=== PATIENT | male | born 1960 | race Caucasian/White ===

== ENCOUNTER 2018-01-27 14:32 | Emergency (ER) | payer OTHER ==
[~2018-01-27] VITALS: Ht 185.4 cm; Wt 95.2 kg
[~2018-01-27 14:32] MED LIST: MOBIC15 MG PO; OMEPRAZOLE40 M1 PO; PERCOCET 5/31 TABLET PO; PRINIVIL20 MG PO
[2018-01-27 15:24] LABS: HEMATOCRIT 42.5 % (38.0-50.0); HEMOGLOBIN 14.9 G/DL (12.5-16.6); MCH 28.4 PG (29.0-34.0); MCHC 35.1 G/DL (30.0-36.0); MCV 81.1 FL (86-99); PLATELET COUNT 176 K/uL (156-360); RBC DIS.WIDTH-CV 12.8 % (11.8-14.6); RBC DIS.WIDTH-SD 37.7 % (39-53); RED BLOOD COUNT 5.24 M/uL (4.00-5.50); WHITE BLOOD COUNT 6.5 K/uL (4.1-10.2)
[2018-01-27 15:35] LABS: ALBUMIN 4.4 g/dL (3.2-4.8); CHLORIDE 110 mEq/L (99-109); POTASSIUM 4.2 mEq/L (3.7-5.4); SODIUM 141 mEq/L (136-147)
[2018-01-27 15:38] LABS: GLUCOSE 94 mg/dL (70-99); TOTAL PROTEIN 6.9 g/dL (6.4-8.3)
[2018-01-27 15:39] LABS: TOTAL BILIRUBIN 0.7 mg/dL (0.0-1.0)
[2018-01-27 15:41] LABS: ALKALINE PHOSPHATASE 72 IU/L (3-129); GFR ESTIMATE (CALCULATED) > 59 mL/min/ (58.99-99999)
[2018-01-27 15:42] LABS: UREA NITROGEN (BUN) 19 mg/dL (9-23)
[2018-01-27 15:43] LABS: AST (GOT) 27 IU/L (2-34)
[2018-01-27 15:44] LABS: ALT (GPT) 27 IU/L (3-49); LIPASE 8 U/L (1.0-51.0)
[2018-01-27 16:58] LABS: APPEARANCE CLEAR ((CLEAR)); BILIRUBIN NEGATIVE; BLOOD NEGATIVE; COLOR STRAW ((YELLOW)); GLUCOSE (STRIP) NEGATIVE; KETONES NEGATIVE; LEUKOCYTES NEGATIVE; NITRITE NEGATIVE; PROTEIN (STRIP) NEGATIVE; SPECIFIC GRAVITY 1.008 (1.000-1.030); UCUL ADDED? NO; UROBILINOGEN 0.2 MG/DL (0.2-1.0)
[2018-01-27] MEDS ORDERED: PERCOCET 5/31 TABLET PO (17:50)
[2018-01-27 18:48] VITALS: BP 139/82
== END 2018-01-27 18:50 | disposition home or self-care (01) ==
LOC: EME 14:32
PROVIDERS: Physician Assistant
DX: K40.90 Unilateral inguinal hernia, without obstruction or gangrene, not specified as recurrent (principal); Z87.891 Personal history of nicotine dependence
CPT/HCPCS: 74177; 80053; 81003; 83690; 85027; 99281; 99285; J1885; J2405; J3010; J7030

== ENCOUNTER → 2018-01-30 | Outpatient (CLI) | payer OTHER ==
[~2018-01-30] MED LIST changes: +NORCO 5/3251 TABLET PO
== END | disposition home or self-care (01) ==
LOC: CDC 12:29
DX: Z01.810 Encounter for preprocedural cardiovascular examination (principal); K40.90 Unilateral inguinal hernia, without obstruction or gangrene, not specified as recurrent
CPT/HCPCS: 93000

== ENCOUNTER 2018-01-31 11:14 | Day surgery (SDC) | payer OTHER ==
[~2018-01-31] VITALS: Ht 185.4 cm; Wt 95.3 kg
[~2018-01-31 11:14] MED LIST changes: -NORCO 5/3251 TABLET PO
[2018-01-31 12:07] VITALS: BP 155/94
[2018-01-31] MEDS ORDERED: NORCO 5/3251 TABLET PO (16:26)
[2018-01-31 16:46] VITALS: BP 145/84
[2018-01-31 17:45] VITALS: BP 121/72
[2018-01-31 18:35] VITALS: BP 136/79
== END 2018-01-31 19:00 | disposition home or self-care (01) ==
LOC: SDC
PROC: 0YU64JZ Supplement Left Inguinal Region with Synthetic Substitute, Percutaneous Endoscopic Approach (ICD-10-PCS; principal; 2018-01-31)
DX: K40.90 Unilateral inguinal hernia, without obstruction or gangrene, not specified as recurrent (principal); I10 Essential (primary) hypertension; K21.9 Gastro-esophageal reflux disease without esophagitis; Z87.891 Personal history of nicotine dependence
CPT/HCPCS: C1781; J0131; J0690; J1100; J1170; J1885; J2250; J2405; J2710; J3010; J3475; J7643

== ENCOUNTER 2018-04-11 09:00 | Day surgery (SDC) | payer OTHER ==
[~2018-04-11] VITALS: Ht 185.4 cm; Wt 95.2 kg
[~2018-04-11 09:00] MED LIST changes: +ADVIL200 MG PO; +NORCO 5/3251 TABLET PO
[2018-04-11 10:00] VITALS: BP 130/84
[2018-04-11] MEDS ORDERED: NORCO 5/3251 TABLET PO (13:52)
[2018-04-11 16:21] VITALS: BP 154/77
[2018-04-11 16:58] VITALS: BP 142/78
== END 2018-04-11 17:10 | disposition home or self-care (01) ==
LOC: SDC 09:00
PROC: 0YU64JZ Supplement Left Inguinal Region with Synthetic Substitute, Percutaneous Endoscopic Approach (ICD-10-PCS; principal; 2018-04-11)
DX: K40.90 Unilateral inguinal hernia, without obstruction or gangrene, not specified as recurrent (principal); D17.6 Benign lipomatous neoplasm of spermatic cord; Z87.891 Personal history of nicotine dependence; I10 Essential (primary) hypertension; K21.9 Gastro-esophageal reflux disease without esophagitis; M19.90 Unspecified osteoarthritis, unspecified site
CPT/HCPCS: C1727; C1781; J0131; J0330; J0690; J1100; J1200; J2250; J2405; J2710; J2765; J3010; Q0175